=== PATIENT | female | born 1950 | race Caucasian/White ===

== ENCOUNTER 2017-05-04 18:44 | Emergency (ER) | payer MEDICAID, MEDICARE ==
[~2017-05-04] VITALS: Ht 152.4 cm; Wt 80.0 kg
[~2017-05-04 18:44] MED LIST: ATEN-42 PO; BENA5TAB3 PO; LANS15CA14 PO
[2017-05-04] MEDS ORDERED: ONDANSETRON HCL 4MG/2ML VIAL IV STA (19:55)
[2017-05-04] MEDS ORDERED: SODIUM CHLORIDE 0.9% 1,000 ML IV ONE (19:55)
[2017-05-04] MEDS ORDERED: FAMOTIDINE 20MG/2ML VIAL IV STA (19:55)
[2017-05-04] MEDS ORDERED: MORPHINE SULFATE 4 MG/ML CPJ (NOT FOR IM USE) IV STA (19:55)
[2017-05-04 20:21] LABS: BASOPHILS % 1.2 % (0.0-2.0); EOSINOPHILS % 3.4 % (0.0-5.0); HEMATOCRIT. 34.6 % (36.0-48.0); HEMOGLOBIN. 11.7 g/dL (12.0-16.0); LYMPHOCYTES % 37.5 % (20.0-50.0); MEAN CORPUSCULAR HEMOGLOBIN 29.5 pg (28.0-32.0); MEAN PLATELET VOLUME 6.8 fl (7.4-10.4); MONOCYTES % 8.3 % (2.0-8.0); NEUTROPHILS % 49.6 % (40.0-76.0); PLATELET 326 x1000/uL (130-400); RED BLOOD CELL COUNT 3.98 mill/uL (4.2-5.4); RED CELL DISTRIBUTION WIDTH 14.6 % (11.6-14.6)
[2017-05-04 20:23] LABS: CHLORIDE 107 mEq/L (98-107)
[2017-05-04 20:24] LABS: INR 1.1; PROTHROMBIN TIME 10.9 sec
[2017-05-04 20:34] LABS: CARBON DIOXIDE 26 mEq/L (21-32)
[2017-05-04 22:05] VITALS: BP 140/67
[2017-05-04 22:32] LABS: CLARITY URINE CLEAR (CLEAR); COLOR URINE YELLOW (YELLOW); GLUCOSE URINE NEGATIVE (NEGATIVE); KETONES URINE NEGATIVE (NEGATIVE); LEUKOCYTE ESTERASE URINE 1+ (NEGATIVE); NITRITE URINE NEGATIVE (NEGATIVE); OCCULT BLOOD URINE NEGATIVE (NEGATIVE); PH URINE 5.5 (4.5-8.0); PROTEIN URINE NEGATIVE (NEGATIVE); SPECIFIC GRAVITY URINE 1.026 (1.005-1.030)
== END 2017-05-04 23:03 | disposition home or self-care (01) ==
LOC: ER 19:01 → CANBEDREQ 05-05 05:04
DX: K44.9 Diaphragmatic hernia without obstruction or gangrene (principal); K76.0 Fatty (change of) liver, not elsewhere classified; E11.9 Type 2 diabetes mellitus without complications; R60.0 Localized edema; E78.00 Pure hypercholesterolemia, unspecified; I10 Essential (primary) hypertension; D64.9 Anemia, unspecified; J45.909 Unspecified asthma, uncomplicated; F32.9 Major depressive disorder, single episode, unspecified; G47.30 Sleep apnea, unspecified; Z88.6 Allergy status to analgesic agent; Z90.710 Acquired absence of both cervix and uterus
CPT/HCPCS: 36415; 71010; 74176; 80053; 81001; 83605; 83690; 83880; 85025; 85610; 93005; 96361; 96374; 96375; 99285; J2270; J2405; J3490; J7030

== ENCOUNTER 2017-09-21 19:17 | Emergency (ER) | payer MEDICARE, MEDICAID ==
[~2017-09-21] VITALS: Ht 162.6 cm; Wt 81.0 kg
[2017-09-21] MEDS ORDERED: ONDANSETRON HCL 4MG/2ML VIAL IV STA (19:59)
[2017-09-21] MEDS ORDERED: MORPHINE SULFATE 4 MG/ML CPJ (NOT FOR IM USE) IV STA (19:59)
[2017-09-21 21:49] LABS: BASOPHILS % 0.6 % (0.0-2.0); EOSINOPHILS % 2.5 % (0.0-5.0); HEMATOCRIT. 37.7 % (36.0-48.0); HEMOGLOBIN. 12.4 g/dL (12.0-16.0); LYMPHOCYTES % 17.6 % (20.0-50.0); MEAN CORPUSCULAR VOLUME 82.1 fL (81.0-99.0); MEAN PLATELET VOLUME 6.8 fl (7.4-10.4); MONOCYTES % 7.6 % (2.0-8.0); NEUTROPHILS % 71.7 % (40.0-76.0); PLATELET 398 x1000/uL (130-400); RED BLOOD CELL COUNT 4.59 mill/uL (4.2-5.4); RED CELL DISTRIBUTION WIDTH 15.5 % (11.6-14.6)
[2017-09-21 21:55] LABS: CHLORIDE 103 mEq/L (98-107); INR 1.1; PROTHROMBIN TIME 11.4 sec (9.4-11.6)
[2017-09-21 22:02] LABS: CARBON DIOXIDE 26 mEq/L (21-32)
[2017-09-21 22:58] VITALS: BP 130/77
== END 2017-09-21 23:01 | disposition home or self-care (01) ==
LOC: ER 19:41
DX: K59.00 Constipation, unspecified (principal); K21.9 Gastro-esophageal reflux disease without esophagitis; M19.90 Unspecified osteoarthritis, unspecified site; I10 Essential (primary) hypertension; E11.9 Type 2 diabetes mellitus without complications; Z90.710 Acquired absence of both cervix and uterus; Z98.890 Other specified postprocedural states
CPT/HCPCS: 36415; 71010; 80053; 83690; 85025; 85610; 93005; 96374; 96375; 99285; J2270; J2405

== ENCOUNTER 2017-10-10 08:17 | Emergency (ER) | payer OTHER, MEDICAID ==
[~2017-10-10] VITALS: Ht 152.4 cm; Wt 69.0 kg
[2017-10-10] MEDS ORDERED: ALBUTEROL (0.5%) 2.5MG/0.5ML NEB HHN ONE (10:30)
[2017-10-10] MEDS ORDERED: GUAIFENESIN/CODEINE 100-10MG/5ML UDC PO ONE (10:30)
[2017-10-10 13:03] VITALS: BP 140/85
== END 2017-10-10 13:10 | disposition home or self-care (01) ==
LOC: ER 08:17
DX: J20.9 Acute bronchitis, unspecified (principal); J45.909 Unspecified asthma, uncomplicated; E11.9 Type 2 diabetes mellitus without complications; I10 Essential (primary) hypertension; R10.30 Lower abdominal pain, unspecified; Z90.710 Acquired absence of both cervix and uterus; Z98.890 Other specified postprocedural states; Z88.8 Allergy status to other drugs, medicaments and biological substances
CPT/HCPCS: 71045; 94640; 99283; J7611

== ENCOUNTER 2018-07-31 14:38 | Emergency (ER) | payer OTHER, MEDICAID ==
[~2018-07-31] VITALS: Ht 149.9 cm; Wt 75.0 kg
[~2018-07-31 14:38] MED LIST changes: -BENA5TAB3 PO; +BENA5TAB6 PO
[2018-07-31] MEDS ORDERED: GABAPENTIN 300MG CAPSULE PO ONE (20:30)
[2018-07-31] MEDS ORDERED: ACETAMINOPHEN 325MG TABLET PO ONE (20:30)
[2018-07-31 21:53] LABS: BASOPHILS % 1.4 % (0.0-2.0); EOSINOPHILS % 3.6 % (0.0-5.0); HEMATOCRIT. 38.2 % (36.0-48.0); HEMOGLOBIN. 12.6 g/dL (12.0-16.0); LYMPHOCYTES % 33.2 % (20.0-50.0); MEAN CORPUSCULAR HEMOGLOBIN 26.5 pg (28.0-32.0); MEAN CORPUSCULAR VOLUME 80.5 fL (81.0-99.0); MEAN PLATELET VOLUME 7.2 fl (7.4-10.4); MONOCYTES % 5.9 % (2.0-8.0); NEUTROPHILS % 55.9 % (40.0-76.0); PLATELET 360 x1000/uL (130-400); RED BLOOD CELL COUNT 4.75 mill/uL (4.2-5.4); RED CELL DISTRIBUTION WIDTH 17.8 % (11.6-14.6)
[2018-07-31 21:56] LABS: CHLORIDE 104 mEq/L (98-107)
[2018-07-31 23:07] VITALS: BP 150/70
== END 2018-07-31 23:06 | disposition home or self-care (01) ==
LOC: ER 14:38
DX: M54.12 Radiculopathy, cervical region (principal); J45.909 Unspecified asthma, uncomplicated; I10 Essential (primary) hypertension; E11.9 Type 2 diabetes mellitus without complications; M54.30 Sciatica, unspecified side; M19.90 Unspecified osteoarthritis, unspecified site; Z79.899 Other long term (current) drug therapy
CPT/HCPCS: 36415; 70490; 85651; 86140; 99285

== ENCOUNTER 2020-01-18 14:18 | Emergency (ER) | payer MEDICARE, MEDICAID ==
[~2020-01-18] VITALS: Ht 162.6 cm; Wt 100.0 kg
[2020-01-18] MEDS ORDERED: ACETAMINOPHEN 325MG TABLET PO ONE (15:30)
[2020-01-18] MEDS ORDERED: TRAMADOL 50MG TABLET PO ONE (15:30)
[2020-01-18 15:31] VITALS: BP 110/49
== END 2020-01-18 17:05 | disposition home or self-care (01) ==
LOC: ER 14:37
DX: G89.18 Other acute postprocedural pain (principal); M54.5 Low back pain; E11.9 Type 2 diabetes mellitus without complications; J45.909 Unspecified asthma, uncomplicated; I10 Essential (primary) hypertension; Z90.710 Acquired absence of both cervix and uterus; Z98.890 Other specified postprocedural states; Z88.6 Allergy status to analgesic agent; Z79.899 Other long term (current) drug therapy
CPT/HCPCS: 99283

== ENCOUNTER 2020-07-19 11:17 | Emergency (ER) | payer MEDICARE, MEDICAID ==
[~2020-07-19] VITALS: Ht 162.6 cm; Wt 82.0 kg
[2020-07-19] MEDS ORDERED: HYDRALAZINE HCL 100MG TABLET PO ONE (11:45)
[2020-07-19] MEDS ORDERED: SODIUM CHLORIDE 0.9% 1,000 ML IV ONE (11:45)
[2020-07-19] MEDS ORDERED: ACETAMINOPHEN 325MG TABLET PO ONE (11:45)
[2020-07-19 12:11] LABS: BASOPHILS % 1.2 % (0.0-2.0); EOSINOPHILS % 3.1 % (0.0-5.0); HEMATOCRIT. 36.3 % (36.0-48.0); HEMOGLOBIN. 12.1 g/dL (12.0-16.0); LYMPHOCYTES % 20.3 % (20.0-50.0); MEAN CORPUSCULAR HEMOGLOBIN 26.7 pg (28.0-32.0); MEAN CORPUSCULAR VOLUME 80.1 fL (81.0-99.0); MEAN PLATELET VOLUME 7.5 fl (7.4-10.4); MONOCYTES % 6.7 % (2.0-8.0); NEUTROPHILS % 68.7 % (40.0-76.0); PLATELET 315 x1000/uL (130-400); RED BLOOD CELL COUNT 4.54 mill/uL (4.2-5.4); RED CELL DISTRIBUTION WIDTH 17.3 % (11.6-14.6)
[2020-07-19 12:19] LABS: CHLORIDE 105 mEq/L (98-107)
[2020-07-19 12:21] LABS: PROTHROMBIN TIME 10.6 sec (9.6-11.0)
[2020-07-19 13:10] VITALS: BP 116/64
[2020-07-21] MEDS ORDERED: GLIP5TAB12 MT (13:03)
== END 2020-07-19 13:36 | disposition home or self-care (01) ==
LOC: ER 11:17
DX: I10 Essential (primary) hypertension (principal); M79.10 Myalgia, unspecified site; E11.65 Type 2 diabetes mellitus with hyperglycemia; Z98.890 Other specified postprocedural states; Z90.710 Acquired absence of both cervix and uterus; Z88.8 Allergy status to other drugs, medicaments and biological substances
CPT/HCPCS: 36415; 71045; 80053; 82962; 85025; 85610; 93005; 96360; 99285; J7030

== ENCOUNTER 2020-07-30 11:57 | Emergency (ER) | payer MEDICARE, MEDICAID ==
[~2020-07-30] VITALS: Ht 149.9 cm; Wt 77.0 kg
[~2020-07-30 11:57] MED LIST changes: +GLIP5TAB12 MT
[2020-07-30] MEDS ORDERED: IBUPROFEN 600MG TABLET PO ONE (13:15)
[2020-07-30] MEDS ORDERED: HYDROCODONE/ACETAMINOPHEN 10/325MG TABLET PO ONE (13:15)
[2020-07-30 16:30] VITALS: BP 116/58
== END 2020-07-30 17:35 | disposition home or self-care (01) ==
LOC: ER 12:10
DX: M54.42 Lumbago with sciatica, left side (principal); E11.9 Type 2 diabetes mellitus without complications; I10 Essential (primary) hypertension; Z90.710 Acquired absence of both cervix and uterus
CPT/HCPCS: 72131; 99284

== ENCOUNTER 2020-08-31 12:15 | Emergency (ER) | payer MEDICARE, MEDICAID ==
[~2020-08-31] VITALS: Ht 149.9 cm; Wt 73.0 kg
[2020-08-31 13:11] LABS: EOSINOPHILS % 5.9 % (0.0-5.0); HEMATOCRIT. 34.1 % (36.0-48.0); HEMOGLOBIN. 11.2 g/dL (12.0-16.0); LYMPHOCYTES % 22.2 % (20.0-50.0); MEAN CORPUSCULAR HEMOGLOBIN 26.5 pg (28.0-32.0); MEAN CORPUSCULAR VOLUME 80.8 fL (81.0-99.0); MEAN PLATELET VOLUME 6.7 fl (7.4-10.4); MONOCYTES % 7.4 % (2.0-8.0); NEUTROPHILS % 63.5 % (40.0-76.0); PLATELET 323 x1000/uL (130-400); RED BLOOD CELL COUNT 4.22 mill/uL (4.2-5.4); RED CELL DISTRIBUTION WIDTH 16.1 % (11.6-14.6)
[2020-08-31 13:25] LABS: CHLORIDE 108 mEq/L (98-107)
[2020-08-31] MEDS ORDERED: IPRATROPIUM/ALBUTEROL 0.5-3(2.5)MG/3ML NEB HHN ONE (13:30)
[2020-08-31] MEDS ORDERED: POTASSIUM CHLORIDE 20MEQ TABLET SR PO ONE (14:45)
[2020-08-31 15:00] VITALS: BP 128/68
== END 2020-08-31 15:52 | disposition home or self-care (01) ==
LOC: ER 12:43
DX: J44.1 Chronic obstructive pulmonary disease with (acute) exacerbation (principal); E87.6 Hypokalemia; E11.65 Type 2 diabetes mellitus with hyperglycemia; I10 Essential (primary) hypertension; E78.00 Pure hypercholesterolemia, unspecified; Z03.818 Encounter for observation for suspected exposure to other biological agents ruled out; Z98.1 Arthrodesis status; Z90.710 Acquired absence of both cervix and uterus; Z88.8 Allergy status to other drugs, medicaments and biological substances
CPT/HCPCS: 36415; 71045; 80053; 84484; 85025; 87635; 93005; 99285; C9803

== ENCOUNTER 2020-12-10 11:46 | Emergency (ER) | payer MEDICARE, MEDICAID ==
[~2020-12-10] VITALS: Ht 149.9 cm; Wt 74.8 kg
[2020-12-10] MEDS ORDERED: MORPHINE SULFATE 4 MG/ML CPJ (NOT FOR IM USE) IV STA (12:11)
[2020-12-10] MEDS ORDERED: ONDANSETRON HCL 4MG/2ML INJ IV STA (12:11)
[2020-12-10] MEDS ORDERED: SODIUM CHLORIDE 0.9% 1,000 ML IV ONE (12:15)
[2020-12-10] MEDS ORDERED: AMLODIPINE 5MG TABLET PO ONE (12:15)
[2020-12-10 12:35] LABS: BASOPHILS % 1.2 % (0.0-2.0); EOSINOPHILS % 4.2 % (0.0-5.0); HEMATOCRIT. 36.6 % (36.0-48.0); LYMPHOCYTES % 20.9 % (20.0-50.0); MEAN CORPUSCULAR VOLUME 79.2 fL (81.0-99.0); MONOCYTES % 5.6 % (2.0-8.0); NEUTROPHILS % 68.1 % (40.0-76.0); PLATELET 366 x1000/uL (130-400); RED BLOOD CELL COUNT 4.62 mill/uL (4.2-5.4); RED CELL DISTRIBUTION WIDTH 16.1 % (11.6-14.6)
[2020-12-10 12:43] LABS: CHLORIDE 106 mEq/L (98-107)
[2020-12-10 12:46] LABS: INR 1.1; PROTHROMBIN TIME 11.8 sec (9.6-11.0)
[2020-12-10 13:11] VITALS: BP 163/73
[2020-12-10] MEDS ORDERED: T3 PO (14:31)
[2020-12-10] MEDS ORDERED: CEPH500C2 MT (14:32)
[2020-12-10 15:30] LABS: CLARITY URINE CLEAR (CLEAR); COLOR URINE YELLOW (YELLOW); KETONES URINE NEGATIVE (NEGATIVE); LEUKOCYTE ESTERASE URINE NEGATIVE (NEGATIVE); NITRITE URINE NEGATIVE (NEGATIVE); OCCULT BLOOD URINE TRACE (NEGATIVE); PH URINE 5.5 (4.5-8.0); PROTEIN URINE TRACE (NEGATIVE); SPECIFIC GRAVITY URINE 1.025 (1.005-1.030); UROBILINOGEN URINE 0.2 E.U./dL (0.2-1.0)
== END 2020-12-10 15:55 | disposition home or self-care (01) ==
LOC: ER 12:21
DX: R10.9 Unspecified abdominal pain (principal); E11.9 Type 2 diabetes mellitus without complications; I10 Essential (primary) hypertension; Z90.710 Acquired absence of both cervix and uterus; Z98.890 Other specified postprocedural states; Z79.899 Other long term (current) drug therapy; Z88.5 Allergy status to narcotic agent
CPT/HCPCS: 36415; 74176; 80053; 81003; 83690; 85025; 85610; 93005; 96361; 96374; 96375; 99285; J2270; J2405; J7030

== ENCOUNTER 2021-01-05 13:47 | Emergency (ER) | payer MEDICARE, MEDICAID ==
[~2021-01-05] VITALS: Ht 149.9 cm; Wt 74.0 kg
[~2021-01-05 13:47] MED LIST changes: +CEPH500C2 MT; +T3 PO
[2021-01-05] MEDS ORDERED: HYDROCODONE/ACETAMINOPHEN 5/325MG TABLET PO ONE (14:15)
[2021-01-05] MEDS ORDERED: HYDR-4001 MT (16:18)
[2021-01-05] MEDS ORDERED: T3 PO ×2 (16:25)
[2021-01-05 17:00] VITALS: BP 168/75
== END 2021-01-05 18:02 | disposition home or self-care (01) ==
LOC: ER 13:57
DX: S92.351A Displaced fracture of fifth metatarsal bone, right foot, initial encounter for closed fracture (principal); E11.9 Type 2 diabetes mellitus without complications; I10 Essential (primary) hypertension; W50.2XXA Accidental twist by another person, initial encounter; Y93.89 Activity, other specified; Y92.89 Other specified places as the place of occurrence of the external cause; Y99.8 Other external cause status; Z98.890 Other specified postprocedural states; Z79.899 Other long term (current) drug therapy; Z88.5 Allergy status to narcotic agent
CPT/HCPCS: 29505; 73590; 73610; 73630; 99284

== ENCOUNTER 2021-05-06 16:25 | Inpatient (IN) | payer MEDICARE, MEDICAID ==
[~2021-05-06] VITALS: Ht 157.5 cm; Wt 78.5 kg
[~2021-05-06 16:25] MED LIST changes: -ATEN-42 PO; +ATEN50TA PO; -BENA5TAB6 PO; -CEPH500C2 MT; +GLIM4TAB36 PO; -GLIP5TAB12 MT; -LANS15CA14 PO; +METF-416 PO; +RIME75TA SL; -T3 PO; +VALS160T28 PO
[2021-05-06] MEDS ORDERED: MECLIZINE 25MG TABLET PO ONE (19:00)
[2021-05-06] MEDS ORDERED: SODIUM CHLORIDE 0.9% 1,000 ML IV ONE ×2 (19:00→19:15)
[2021-05-06 21:29] LABS: BASOPHILS % 0.9 % (0.0-2.0); EOSINOPHILS % 3.5 % (0.0-5.0); HEMATOCRIT. 33.1 % (36.0-48.0); HEMOGLOBIN. 10.8 g/dL (12.0-16.0); LYMPHOCYTES % 34.1 % (20.0-50.0); MEAN CORPUSCULAR VOLUME 76.3 fL (81.0-99.0); MEAN PLATELET VOLUME 6.7 fl (7.4-10.4); NEUTROPHILS % 54.5 % (40.0-76.0); PLATELET 417 x1000/uL (130-400); RED BLOOD CELL COUNT 4.34 mill/uL (4.2-5.4); RED CELL DISTRIBUTION WIDTH 16.4 % (11.6-14.6)
[2021-05-06 21:35] LABS: CHLORIDE 111 mEq/L (98-107)
[2021-05-06 21:43] LABS: BETA HYDROXYBUTYRATE 0.1 mMol/L (0.0-0.3)
[2021-05-06] MEDS ORDERED: AMPICILLIN SOD/SULBACTAM NA 3 G in SODIUM CHLORIDE 0.9% 100 ML IV SCH (22:45)
[2021-05-06 22:46] LABS: CLARITY URINE CLEAR (CLEAR); COLOR URINE YELLOW (YELLOW); KETONES URINE NEGATIVE (NEGATIVE); LEUKOCYTE ESTERASE URINE NEGATIVE (NEGATIVE); NITRITE URINE NEGATIVE (NEGATIVE); OCCULT BLOOD URINE NEGATIVE (NEGATIVE); PROTEIN URINE NEGATIVE (NEGATIVE); SPECIFIC GRAVITY URINE 1.008 (1.005-1.030); UROBILINOGEN URINE 0.2 E.U./dL (0.2-1.0)
[2021-05-07] MEDS ORDERED: MORPHINE SULFATE 4 MG/ML CPJ (NOT FOR IM USE) IV ONE
[2021-05-07] MEDS ORDERED: ONDANSETRON HCL 4MG/2ML INJ IV PRN (00:30)
[2021-05-07] MEDS ORDERED: DIPHENHYDRAMINE 50MG/ML VIAL IV PRN (00:30)
[2021-05-07] MEDS ORDERED: CLONIDINE 0.1MG TABLET PO PRN (00:30)
[2021-05-07] MEDS ORDERED: NA PHOS,M-B/NA PHOS,DI-BA ENEMA 118ML PR PRN (00:30)
[2021-05-07] MEDS ORDERED: LORAZEPAM 2MG/ML CPJ IV PRN (00:30)
[2021-05-07] MEDS ORDERED: IPRATROPIUM/ALBUTEROL 0.5-3(2.5)MG/3ML NEB NEB PRN (00:30)
[2021-05-07] MEDS ORDERED: DOCUSATE SODIUM 100MG CAPSULE PO PRN (00:30)
[2021-05-07] MEDS ORDERED: NALOXONE HCL 0.4MG/ML VIAL IV PRN (00:30)
[2021-05-07] MEDS ORDERED: ACETAMINOPHEN 325MG TABLET PO PRN (00:30)
[2021-05-07] MEDS ORDERED: MAGNESIUM/ALUMINUM HYDROXIDE/SIMETHICONE 30ML UDC PO PRN (00:30)
[2021-05-07] MEDS ORDERED: GUAIFENESIN 200MG/10ML SUGAR FREE UDC PO PRN (00:30)
[2021-05-07] MEDS: SODIUM CHLORIDE 0.45% 1,000 ML IV SCH ×2 (02:34→08:25)
[2021-05-07] MEDS ORDERED: DEXTROSE 50% WATER 50ML SYRINGE IV PRN (05:15)
[2021-05-07] MEDS: MORPHINE SULFATE 2 MG/ML CPJ (NOT FOR IM USE) IV PRN ×2 (05:44→16:31)
[2021-05-07] MEDS: BLOOD SUGAR DIAGNOSTIC STRIP TEST SCH ×4 (07:20→21:01)
[2021-05-07 08:00] VITALS: BP 154/88
[2021-05-07] MEDS: ASPIRIN 81MG EC TABLET PO SCH (08:33)
[2021-05-07] MEDS: ENOXAPARIN 40MG/0.4ML SYR SUBCUT SCH (08:34)
[2021-05-07] MEDS: INSULIN LISPRO 100 UNITS/ML SUBCUT SCH ×4 (08:39→21:01)
[2021-05-07 10:07] LABS: CHLORIDE 107 mEq/L (98-107)
[2021-05-07] MEDS: HYDRALAZINE HCL 50MG TABLET PO SCH ×2 (10:49→20:43)
[2021-05-07 16:08] LABS: CREATINE KINASE 43 IU/L (26-192)
[2021-05-07 16:09] LABS: CREATINE KINASE MB FRACTION < 1.0 ng/mL (0.5-3.6)
[2021-05-07 20:00] VITALS: BP 152/83
[2021-05-07] MEDS ORDERED: POTASSIUM CHLORIDE 20MEQ TABLET SR PO ONE (20:00)
[2021-05-07] MEDS ORDERED: LEVOFLOXACIN 500MG PREMIX 100 ML IV NR (21:00)
[2021-05-08] VITALS: BP 139/74
[2021-05-08] MEDS: MORPHINE SULFATE 2 MG/ML CPJ (NOT FOR IM USE) IV PRN ×3 (00:13→20:06)
[2021-05-08 00:30] LABS: CREATINE KINASE 56 IU/L (26-192)
[2021-05-08 00:31] LABS: CREATINE KINASE MB FRACTION < 1.0 ng/mL (0.5-3.6)
[2021-05-08 04:00] VITALS: BP 128/66
[2021-05-08] MEDS: BLOOD SUGAR DIAGNOSTIC STRIP TEST SCH ×4 (06:30→20:12)
[2021-05-08 06:51] LABS: EOSINOPHILS % 3.7 % (0.0-5.0); HEMOGLOBIN. 11.5 g/dL (12.0-16.0); LYMPHOCYTES % 30.9 % (20.0-50.0); MEAN CORPUSCULAR HEMOGLOBIN 24.8 pg (28.0-32.0); MEAN PLATELET VOLUME 6.6 fl (7.4-10.4); NEUTROPHILS % 57.4 % (40.0-76.0); PLATELET 425 x1000/uL (130-400); RED BLOOD CELL COUNT 4.61 mill/uL (4.2-5.4); RED CELL DISTRIBUTION WIDTH 17.4 % (11.6-14.6)
[2021-05-08 07:15] LABS: CHLORIDE 104 mEq/L (98-107)
[2021-05-08 07:27] LABS: LDL CHOLESTEROL 87 mg/dL (5-100)
[2021-05-08 07:28] LABS: CREATINE KINASE 53 IU/L (26-192); CREATINE KINASE MB FRACTION < 1.0 ng/mL (0.5-3.6)
[2021-05-08 07:30] LABS: T4 FREE 1.22 ng/dL (0.76-1.46)
[2021-05-08 07:31] LABS: HDL CHOLESTEROL 41 mg/dL (40-59)
[2021-05-08 08:00] VITALS: BP 140/75
[2021-05-08] MEDS: ASPIRIN 81MG EC TABLET PO SCH (09:06)
[2021-05-08] MEDS: ENOXAPARIN 40MG/0.4ML SYR SUBCUT SCH (09:07)
[2021-05-08] MEDS: HYDRALAZINE HCL 50MG TABLET PO SCH ×2 (09:07→20:18)
[2021-05-08] MEDS: INSULIN LISPRO 100 UNITS/ML SUBCUT SCH ×4 (09:12→20:18)
[2021-05-08] MEDS: SODIUM CHLORIDE 0.45% 1,000 ML IV SCH (10:15)
[2021-05-08] MEDS ORDERED: ONDANSETRON HCL 4MG/2ML INJ IV PRN (11:45)
[2021-05-08 12:00] VITALS: BP 121/70
[2021-05-08 16:00] VITALS: BP 140/72
[2021-05-08 20:00] VITALS: BP 133/63
[2021-05-09] VITALS: BP 130/69
[2021-05-09] MEDS: SODIUM CHLORIDE 0.45% 1,000 ML IV SCH (02:48)
[2021-05-09 04:00] VITALS: BP 131/74
[2021-05-09] MEDS: BLOOD SUGAR DIAGNOSTIC STRIP TEST SCH (06:51)
[2021-05-09 08:00] VITALS: BP 132/75
[2021-05-09] MEDS: ASPIRIN 81MG EC TABLET PO SCH (09:07)
[2021-05-09] MEDS: HYDRALAZINE HCL 50MG TABLET PO SCH (09:07)
[2021-05-09] MEDS: ENOXAPARIN 40MG/0.4ML SYR SUBCUT SCH (09:08)
[2021-05-09] MEDS: INSULIN LISPRO 100 UNITS/ML SUBCUT SCH (09:21)
[2021-05-09] MEDS ORDERED: OMEPRAZOLE 20MG CAPSULE EXTENDED RELEASE PO NR (10:00)
[2021-05-09 10:26] VITALS: BP 132/75
== END 2021-05-09 11:50 | disposition home or self-care (01) | DRG 73 ==
LOC: ER 16:25 → 6EST 22:55 → ENRESERV 23:58 → CANRESERV 23:58 → ENRESERV 05-07 01:05 → EDBEDREQ 05-07 02:12
PROVIDERS: ADMIT Internal Medicine; ATTEND Internal Medicine
DX: G90.9 Disorder of the autonomic nervous system, unspecified (principal); G93.41 Metabolic encephalopathy; G45.9 Transient cerebral ischemic attack, unspecified; K57.32 Diverticulitis of large intestine without perforation or abscess without bleeding; I67.1 Cerebral aneurysm, nonruptured; H81.10 Benign paroxysmal vertigo, unspecified ear; E11.65 Type 2 diabetes mellitus with hyperglycemia; E66.9 Obesity, unspecified; I11.0 Hypertensive heart disease with heart failure; D64.9 Anemia, unspecified; E03.8 Other specified hypothyroidism; G43.909 Migraine, unspecified, not intractable, without status migrainosus; I25.10 Atherosclerotic heart disease of native coronary artery without angina pectoris; K44.9 Diaphragmatic hernia without obstruction or gangrene; K76.0 Fatty (change of) liver, not elsewhere classified; Z79.84 Long term (current) use of oral hypoglycemic drugs; Z79.899 Other long term (current) drug therapy; Z91.81 History of falling; Z88.5 Allergy status to narcotic agent; Z88.8 Allergy status to other drugs, medicaments and biological substances; Z79.1 Long term (current) use of non-steroidal anti-inflammatories (NSAID); Z68.31 Body mass index [BMI] 31.0-31.9, adult; I50.9 Heart failure, unspecified
CPT/HCPCS: 36415; 71045; 74176; 80048; 80053; 80061; 81003; 82010; 82550; 82553; 82962; 83036; 83880; 84439; 84443; 84484; 85025; 85379; 93005; 93306; 97162; 99285; J0295; J1200; J1650; J1815; J1956; J2270; J2405; J7030; J7050; J8597

== ENCOUNTER 2021-09-01 10:56 | Inpatient (IN) | payer MEDICARE, MEDICAID ==
[~2021-09-01] VITALS: Ht 149.9 cm; Wt 77.1 kg
[2021-09-01] MEDS ORDERED: LACTATED RINGERS 1,000 ML IV SCH (12:15)
[2021-09-01] MEDS ORDERED: MORPHINE SULFATE 4 MG/ML CPJ (NOT FOR IM USE) IV ONE (12:15)
[2021-09-01 12:35] LABS: BASOPHILS % 0.4 % (0.0-2.0); EOSINOPHILS % 0.9 % (0.0-5.0); HEMATOCRIT. 35.8 % (36.0-48.0); HEMOGLOBIN. 11.4 g/dL (12.0-16.0); LYMPHOCYTES % 18.6 % (20.0-50.0); MEAN CORPUSCULAR HEMOGLOBIN 24.4 pg (28.0-32.0); MEAN CORPUSCULAR VOLUME 76.7 fL (81.0-99.0); NEUTROPHILS % 71.1 % (40.0-76.0); PLATELET 432 x1000/uL (130-400); RED BLOOD CELL COUNT 4.67 mill/uL (4.2-5.4); RED CELL DISTRIBUTION WIDTH 19.3 % (11.6-14.6)
[2021-09-01 12:43] LABS: CHLORIDE 101 mEq/L (98-107)
[2021-09-01 13:13] LABS: CLARITY URINE CLEAR (CLEAR); COLOR URINE YELLOW (YELLOW); KETONES URINE NEGATIVE (NEGATIVE); LEUKOCYTE ESTERASE URINE NEGATIVE (NEGATIVE); NITRITE URINE NEGATIVE (NEGATIVE); OCCULT BLOOD URINE NEGATIVE (NEGATIVE); PH URINE 7.5 (4.5-8.0); PROTEIN URINE TRACE (NEGATIVE); SPECIFIC GRAVITY URINE 1.013 (1.005-1.030); UROBILINOGEN URINE 0.2 E.U./dL (0.2-1.0)
[2021-09-01] MEDS ORDERED: IOHEXOL-300 100 ML BOTTLE ONE (14:38)
[2021-09-01] MEDS ORDERED: CEFTRIAXONE 1 G PREMIX 50 ML IV ONE (15:45)
[2021-09-01] MEDS ORDERED: METRONIDAZOLE 500 MG PREMIX 100 ML IV ONE (15:45)
[2021-09-01] MEDS ORDERED: KETOROLAC 30MG/ML VIAL IV ONE (17:00)
[2021-09-01 20:00] VITALS: BP 130/66
[2021-09-01] MEDS ORDERED: NALOXONE HCL 0.4MG/ML VIAL IV PRN (20:30)
[2021-09-01] MEDS: MORPHINE SULFATE 2 MG/ML CPJ (NOT FOR IM USE) IV PRN (20:31)
[2021-09-01] MEDS ORDERED: CLONIDINE 0.1MG TABLET PO PRN (21:00)
[2021-09-01] MEDS ORDERED: MAGNESIUM/ALUMINUM HYDROXIDE/SIMETHICONE 30ML UDC PO PRN (21:00)
[2021-09-01] MEDS ORDERED: ONDANSETRON HCL 4MG/2ML INJ IV PRN (21:15)
[2021-09-01] MEDS ORDERED: PIPERACILLIN/TAZ 3.375G PREMIX 50 ML IV NR (21:15)
[2021-09-01 21:30] VITALS: BP 130/66
[2021-09-01] MEDS ORDERED: METR-167 PO (22:12)
[2021-09-01] MEDS ORDERED: AMOX1TAB16 PO (22:12)
[2021-09-01] MEDS ORDERED: CEPH500C2 PO (22:12)
[2021-09-01] MEDS ORDERED: VALS1TAB75 PO (22:45)
[2021-09-01] MEDS ORDERED: SEMA7TAB PO (22:45)
[2021-09-01] MEDS ORDERED: LEVO750T46 PO (22:45)
[2021-09-01] MEDS ORDERED: ICOS1CAP PO (22:45)
[2021-09-01] MEDS ORDERED: METO-411 PO (22:45)
[2021-09-01] MEDS ORDERED: MECL-159 PO (22:45)
[2021-09-01] MEDS ORDERED: CIPR500T5 PO (22:45)
[2021-09-01] MEDS ORDERED: AMLO5TAB88 PO (22:45)
[2021-09-01] MEDS: SODIUM CHLORIDE 0.45% 1,000 ML IV SCH (23:27)
[2021-09-02] VITALS: BP 129/75
[2021-09-02] MEDS ORDERED: DEXTROSE 50% WATER 50ML SYRINGE IV PRN
[2021-09-02] MEDS ORDERED: POTASSIUM CHLORIDE 20MEQ TABLET SR PO NR (00:30)
[2021-09-02] MEDS: PIPERACILLIN/TAZOBACTAM 3.375 G in DEXTROSE 5% WATER 50 ML IV SCH ×2 (01:09→15:13)
[2021-09-02 04:00] VITALS: BP 142/51
[2021-09-02 06:25] LABS: BASOPHILS % 0.8 % (0.0-2.0); EOSINOPHILS % 2.5 % (0.0-5.0); HEMATOCRIT. 29.8 % (36.0-48.0); HEMOGLOBIN. 9.7 g/dL (12.0-16.0); LYMPHOCYTES % 17.6 % (20.0-50.0); MEAN CORPUSCULAR HEMOGLOBIN 24.7 pg (28.0-32.0); MEAN CORPUSCULAR VOLUME 75.8 fL (81.0-99.0); MEAN PLATELET VOLUME 6.9 fl (7.4-10.4); MONOCYTES % 7.6 % (2.0-8.0); NEUTROPHILS % 71.5 % (40.0-76.0); PLATELET 340 x1000/uL (130-400); RED BLOOD CELL COUNT 3.93 mill/uL (4.2-5.4); RED CELL DISTRIBUTION WIDTH 19.3 % (11.6-14.6)
[2021-09-02 06:31] LABS: CHLORIDE 103 mEq/L (98-107)
[2021-09-02 06:55] LABS: LDL CHOLESTEROL 58 mg/dL (5-100)
[2021-09-02 06:57] LABS: HDL CHOLESTEROL 63 mg/dL (40-59)
[2021-09-02] MEDS: BLOOD SUGAR DIAGNOSTIC STRIP TEST SCH ×4 (07:50→21:00)
[2021-09-02 08:00] VITALS: BP 156/88
[2021-09-02] MEDS: MORPHINE SULFATE 2 MG/ML CPJ (NOT FOR IM USE) IV PRN ×2 (09:20→20:31)
[2021-09-02] MEDS: INSULIN LISPRO 100 UNITS/ML SUBCUT SCH ×4 (09:28→21:00)
[2021-09-02] MEDS: SODIUM CHLORIDE 0.45% 1,000 ML IV SCH ×2 (10:20→23:40)
[2021-09-02] MEDS ORDERED: PANTOPRAZOLE SODIUM 40 MG/VIAL IV SCH (11:15)
[2021-09-02] MEDS ORDERED: LACTULOSE 20G/30ML UDC PO SCH (11:15)
[2021-09-02] MEDS ORDERED: KETOROLAC 30MG/ML VIAL IV SCH (11:15)
[2021-09-02 12:00] VITALS: BP 163/64
[2021-09-02 16:00] VITALS: BP 102/72
[2021-09-02] MEDS: DOCUSATE SODIUM 100MG CAPSULE PO SCH (17:00)
[2021-09-02 20:00] VITALS: BP 136/67
[2021-09-03] VITALS: BP 141/67
[2021-09-03] MEDS: PIPERACILLIN/TAZOBACTAM 3.375 G in DEXTROSE 5% WATER 50 ML IV SCH ×4 (03:51→21:05)
[2021-09-03] MEDS: MORPHINE SULFATE 2 MG/ML CPJ (NOT FOR IM USE) IV PRN ×4 (04:25→21:09)
[2021-09-03] MEDS: BLOOD SUGAR DIAGNOSTIC STRIP TEST SCH ×4 (07:20→20:49)
[2021-09-03] MEDS: INSULIN LISPRO 100 UNITS/ML SUBCUT SCH ×4 (07:50→21:00)
[2021-09-03 08:00] VITALS: BP 169/55
[2021-09-03] MEDS: DOCUSATE SODIUM 100MG CAPSULE PO SCH (09:00)
[2021-09-03 12:00] VITALS: BP 174/74
[2021-09-03] MEDS: SODIUM CHLORIDE 0.45% 1,000 ML IV SCH (13:00)
[2021-09-03 16:00] VITALS: BP 160/73
[2021-09-03 17:00] LABS: BASOPHILS % 1.3 % (0.0-2.0); EOSINOPHILS % 4.4 % (0.0-5.0); HEMATOCRIT. 32.5 % (36.0-48.0); HEMOGLOBIN. 10.6 g/dL (12.0-16.0); LYMPHOCYTES % 18.4 % (20.0-50.0); MEAN CORPUSCULAR HEMOGLOBIN 25.1 pg (28.0-32.0); MONOCYTES % 6.4 % (2.0-8.0); NEUTROPHILS % 69.5 % (40.0-76.0); PLATELET 352 x1000/uL (130-400); RED BLOOD CELL COUNT 4.22 mill/uL (4.2-5.4); RED CELL DISTRIBUTION WIDTH 18.8 % (11.6-14.6)
[2021-09-03 17:18] LABS: CHLORIDE 103 mEq/L (98-107)
[2021-09-03 20:00] VITALS: BP 147/85
[2021-09-04] VITALS: BP 141/75
[2021-09-04] MEDS: SODIUM CHLORIDE 0.45% 1,000 ML IV SCH ×2 (02:39→15:00)
[2021-09-04 04:00] VITALS: BP 153/72
[2021-09-04] MEDS: PIPERACILLIN/TAZOBACTAM 3.375 G in DEXTROSE 5% WATER 50 ML IV SCH ×2 (06:01→15:00)
[2021-09-04] MEDS: MORPHINE SULFATE 2 MG/ML CPJ (NOT FOR IM USE) IV PRN (06:09)
[2021-09-04] MEDS: BLOOD SUGAR DIAGNOSTIC STRIP TEST SCH ×2 (06:27→11:50)
[2021-09-04] MEDS: INSULIN LISPRO 100 UNITS/ML SUBCUT SCH ×2 (07:50→11:51)
[2021-09-04 08:00] VITALS: BP 147/66
[2021-09-04] MEDS ORDERED: ACETAMINOPHEN 650MG/20.3ML UDC PO PRN (09:30)
[2021-09-04] MEDS ORDERED: METR-167 PO (11:30)
[2021-09-04] MEDS ORDERED: LEVO500T89 MT (11:30)
[2021-09-04 11:42] VITALS: BP 147/66
[2021-09-04 12:00] VITALS: BP 135/62
[2021-09-04 16:00] VITALS: BP 162/76
== END 2021-09-04 16:30 | disposition home or self-care (01) | DRG 392 ==
LOC: ER 10:56 → 6EST 17:13 → EDBEDREQSVC 17:15 → EDBEDREQ 17:15 → ENRESERV 20:38
PROVIDERS: ADMIT Family Medicine; ATTEND Family Medicine
DX: K57.32 Diverticulitis of large intestine without perforation or abscess without bleeding (principal); E44.0 Moderate protein-calorie malnutrition; E11.9 Type 2 diabetes mellitus without complications; E66.9 Obesity, unspecified; E86.0 Dehydration; E87.5 Hyperkalemia; I10 Essential (primary) hypertension; Z90.710 Acquired absence of both cervix and uterus; Z68.34 Body mass index [BMI] 34.0-34.9, adult; Z88.6 Allergy status to analgesic agent
CPT/HCPCS: 36415; 74177; 80053; 80061; 81003; 82962; 83036; 85025; 93005; 99285; C1893; C9113; J0696; J1815; J1885; J2270; J2543; J3490; J7060; Q9967

== ENCOUNTER 2022-02-06 15:42 | Emergency (ER) | payer MEDICARE, MEDICAID ==
[~2022-02-06] VITALS: Ht 147.3 cm; Wt 68.0 kg
[~2022-02-06 15:42] MED LIST changes: +AMLO5TAB88 PO; +ATEN50TA MT; -ATEN50TA PO; +DULO30CA2 PO; +ICOS1CAP PO; +LIDO700A30 TOP; -METF-416 PO; +METF-874 MT; +METO-411 MT; +OMEP40CA20 MT; +ONDA4TAB5 MT; +SEMA7TAB PO; +VALS160T28 MT; -VALS160T28 PO
[2022-02-06] MEDS ORDERED: MORPHINE SULFATE 2 MG/ML CPJ (NOT FOR IM USE) IV ONE (16:15)
[2022-02-06 16:41] LABS: BASOPHILS % 0.8 % (0.0-2.0); EOSINOPHILS % 2.5 % (0.0-5.0); HEMATOCRIT. 35.3 % (36.0-48.0); HEMOGLOBIN. 11.5 g/dL (12.0-16.0); LYMPHOCYTES % 25.2 % (20.0-50.0); MEAN CORPUSCULAR HEMOGLOBIN 24.8 pg (28.0-32.0); MEAN CORPUSCULAR VOLUME 76.3 fL (81.0-99.0); MEAN PLATELET VOLUME 6.5 fl (7.4-10.4); MONOCYTES % 9.6 % (2.0-8.0); NEUTROPHILS % 61.9 % (40.0-76.0); PLATELET 413 x1000/uL (130-400); RED BLOOD CELL COUNT 4.63 mill/uL (4.2-5.4); RED CELL DISTRIBUTION WIDTH 20.5 % (11.6-14.6)
[2022-02-06 16:47] LABS: CHLORIDE 105 mEq/L (98-107)
[2022-02-06 20:29] LABS: CLARITY URINE CLEAR (CLEAR); COLOR URINE YELLOW (YELLOW); KETONES URINE NEGATIVE (NEGATIVE); LEUKOCYTE ESTERASE URINE NEGATIVE (NEGATIVE); NITRITE URINE NEGATIVE (NEGATIVE); OCCULT BLOOD URINE NEGATIVE (NEGATIVE); PH URINE 5.5 (4.5-8.0); PROTEIN URINE NEGATIVE (NEGATIVE); SPECIFIC GRAVITY URINE 1.016 (1.005-1.030); UROBILINOGEN URINE 0.2 E.U./dL (0.2-1.0)
[2022-02-06] MEDS ORDERED: KETOROLAC 15MG/ML VIAL IV ONE (21:00)
[2022-02-06] MEDS ORDERED: LIDO700A30 TP (21:21)
[2022-02-06] MEDS ORDERED: CYCL5TAB MT (21:21)
[2022-02-06 22:00] VITALS: BP 168/72
== END 2022-02-06 22:20 | disposition home or self-care (01) ==
LOC: ER 15:42
DX: M54.50 Low back pain, unspecified (principal); G89.29 Other chronic pain; R07.89 Other chest pain; R51.9 Headache, unspecified; D64.9 Anemia, unspecified; E11.9 Type 2 diabetes mellitus without complications; I10 Essential (primary) hypertension; M19.90 Unspecified osteoarthritis, unspecified site; Z88.8 Allergy status to other drugs, medicaments and biological substances; Z79.84 Long term (current) use of oral hypoglycemic drugs
CPT/HCPCS: 36415; 70450; 71045; 72125; 72128; 72131; 80053; 81003; 83880; 84484; 85025; 96374; 96375; 99285; J1885; J2270

== ENCOUNTER 2022-04-26 01:21 | Emergency (ER) | payer MEDICARE, MEDICAID ==
[~2022-04-26] VITALS: Ht 137.2 cm; Wt 75.0 kg
[~2022-04-26 01:21] MED LIST changes: +CYCL5TAB MT; +LIDO700A30 TP; -SEMA7TAB PO; +SEMA7TAB2 PO
[2022-04-26] MEDS ORDERED: IBUPROFEN 600MG TABLET PO ONE (02:45)
[2022-04-26] MEDS ORDERED: ACETAMINOPHEN 325MG TABLET PO ONE (02:45)
[2022-04-26 05:00] VITALS: BP 150/57
[2022-04-26] MEDS ORDERED: DIAZEPAM 5 MG TABLET PO ONE (06:00)
[2022-04-26] MEDS ORDERED: METH-773 MT (06:23)
== END 2022-04-26 07:22 | disposition home or self-care (01) ==
LOC: ER 01:21
DX: G89.29 Other chronic pain (principal); M54.50 Low back pain, unspecified; I10 Essential (primary) hypertension; E11.9 Type 2 diabetes mellitus without complications; Z88.5 Allergy status to narcotic agent; Z88.6 Allergy status to analgesic agent; Z79.899 Other long term (current) drug therapy
CPT/HCPCS: 72110; 72170; 99284

== ENCOUNTER 2022-05-10 06:01 | Emergency (ER) | payer MEDICARE, MEDICAID ==
[~2022-05-10] VITALS: Ht 137.2 cm; Wt 77.0 kg
[~2022-05-10 06:01] MED LIST changes: +METH-773 MT
[2022-05-10] MEDS: KETOROLAC 30MG/ML VIAL IM ONE (08:10)
[2022-05-10] MEDS: CYCLOBENZAPRINE 10MG TABLET PO ONE (08:10)
[2022-05-10] MEDS: PREDNISONE 20MG TABLET PO ONE (08:10)
[2022-05-10 09:02] VITALS: BP 156/95
[2022-05-10] MEDS: MORPHINE SULFATE 4 MG/ML CPJ (NOT FOR IM USE) IV ONE (09:02)
[2022-05-10] MEDS: ONDANSETRON HCL 4MG/2ML INJ IV ONE (09:02)
[2022-05-10] MEDS ORDERED: CYCL5TAB MT (09:21)
[2022-05-10] MEDS ORDERED: MED4 MT (09:21)
== END 2022-05-10 10:19 | disposition home or self-care (01) ==
LOC: ER 06:01
DX: M54.32 Sciatica, left side (principal); E11.9 Type 2 diabetes mellitus without complications; I10 Essential (primary) hypertension; Z88.5 Allergy status to narcotic agent; Z88.6 Allergy status to analgesic agent; Z79.899 Other long term (current) drug therapy; Z98.890 Other specified postprocedural states
CPT/HCPCS: 96372; 96374; 96375; 99284; J1885; J2270; J2405; J7512

== ENCOUNTER 2022-08-16 09:37 | Emergency (ER) | payer MEDICARE, MEDICAID ==
[~2022-08-16] VITALS: Ht 160 cm; Wt 73.0 kg
[~2022-08-16 09:37] MED LIST changes: +MED4 MT
[2022-08-16 11:54] VITALS: BP 134/76
[2022-08-16] MEDS ORDERED: CYCLOBENZAPRINE 10MG TABLET PO NR (12:15)
[2022-08-16] MEDS ORDERED: ACETAMINOPHEN 325MG TABLET PO NR (12:15)
== END 2022-08-16 15:09 | disposition home or self-care (01) ==
LOC: ER 09:37
DX: M54.9 Dorsalgia, unspecified (principal); W10.9XXA Fall (on) (from) unspecified stairs and steps, initial encounter; I10 Essential (primary) hypertension; E11.9 Type 2 diabetes mellitus without complications; Z88.5 Allergy status to narcotic agent; Z88.6 Allergy status to analgesic agent; Y93.89 Activity, other specified; Y92.89 Other specified places as the place of occurrence of the external cause; Y99.8 Other external cause status
CPT/HCPCS: 71045; 72100; 72170; 99284

== ENCOUNTER 2022-12-23 09:40 | Emergency (ER) | payer MEDICARE, MEDICAID ==
[~2022-12-23] VITALS: Ht 165.1 cm; Wt 77.0 kg
[2022-12-23 09:44] VITALS: BP 103/70
[2022-12-23] MEDS ORDERED: CYCLOBENZAPRINE 10MG TABLET PO ONE (11:45)
[2022-12-23] MEDS ORDERED: KETOROLAC 30MG/ML VIAL IM ONE (11:45)
== END 2022-12-23 15:44 | disposition left against medical advice (07) ==
LOC: ER 10:02
DX: M25.512 Pain in left shoulder (principal); M54.12 Radiculopathy, cervical region
CPT/HCPCS: 99283

== ENCOUNTER 2023-08-24 11:50 | Emergency (ER) | payer MEDICARE, MEDICAID ==
[~2023-08-24] VITALS: Ht 152.4 cm; Wt 73.0 kg
[2023-08-24 11:52] VITALS: O2SAT 97
[2023-08-24] MEDS ORDERED: HYDROCODONE/ACETAMINOPHEN 5/325MG TABLET PO STA (14:19)
[2023-08-24] MEDS ORDERED: KETOROLAC 30MG/ML VIAL IM STA (14:45)
[2023-08-24] MEDS ORDERED: ACETAMINOPHEN 325MG TABLET PO STA (14:45)
[2023-08-24 15:11] VITALS: BP 137/76; PULSE 98; RESP 18; TEMP 98.6
[2023-08-24] MEDS ORDERED: GABAPENTIN 300MG CAPSULE PO ONE (17:00)
[2023-08-24] MEDS ORDERED: MORPHINE SULFATE 4 MG/ML CPJ (NOT FOR IM USE) IV STA (18:32)
== END 2023-08-24 19:07 | disposition home or self-care (01) ==
LOC: ER 11:50
DX: G89.29 Other chronic pain (principal); M54.40 Lumbago with sciatica, unspecified side; M19.90 Unspecified osteoarthritis, unspecified site; E11.9 Type 2 diabetes mellitus without complications; K21.9 Gastro-esophageal reflux disease without esophagitis; I10 Essential (primary) hypertension; Z98.890 Other specified postprocedural states
CPT/HCPCS: 99285; 93970; 71045; 72100; 96372; J1885

== ENCOUNTER 2024-05-14 11:53 | Emergency (ER) | payer MEDICARE, MEDICAID ==
[~2024-05-14] VITALS: Ht 152.4 cm; Wt 68.0 kg
[2024-05-14 12:01] VITALS: O2SAT 98
[2024-05-14] MEDS: SODIUM CHLORIDE 0.9% 1,000 ML IV ONE (12:59)
[2024-05-14] MEDS: MORPHINE SULFATE 4 MG/ML INJ (FOR IV/IM USE) IV STA (13:00)
[2024-05-14 13:02] LABS: HEMATOCRIT. 33.7 % (36.0-48.0); HEMOGLOBIN. 11.1 g/dL (12.0-16.0); LYMPHOCYTES % 19.1 % (20.0-50.0); MEAN CORPUSCULAR HEMOGLOBIN 27.8 pg (28.0-32.0); MEAN CORPUSCULAR VOLUME 84.3 fL (81.0-99.0); MEAN PLATELET VOLUME 6.1 fl (7.4-10.4); MONOCYTES % 6.8 % (2.0-8.0); NEUTROPHILS % 70.1 % (40.0-76.0); PLATELET 451 x1000/uL (130-400); RED CELL DISTRIBUTION WIDTH 15.6 % (11.6-14.6); WHITE BLOOD COUNT 12.1 x1000/uL (4.5-11.0)
[2024-05-14 13:07] LABS: PROTHROMBIN TIME 11.4 sec (9.6-11.0)
[2024-05-14 13:12] LABS: CHLORIDE 106 mEq/L (98-107); POTASSIUM 3.9 mEq/L (3.5-5.1); SODIUM 137 mEq/L (136-145)
[2024-05-14 13:13] LABS: CARBON DIOXIDE 24 mEq/L (21-32)
[2024-05-14 13:14] LABS: CALCIUM 9.8 mg/dL (8.7-10.4)
[2024-05-14 13:18] LABS: CREATININE 0.9 mg/dL (0.6-1.0); GLUCOSE 103 mg/dL (70-105)
[2024-05-14 13:19] LABS: UREA NITROGEN BLOOD 31 mg/dL (9-23)
[2024-05-14 13:51] LABS: CLARITY URINE CLEAR (CLEAR); COLOR URINE YELLOW (YELLOW); GLUCOSE URINE NEGATIVE (NEGATIVE); KETONES URINE NEGATIVE (NEGATIVE); LEUKOCYTE ESTERASE URINE NEGATIVE (NEGATIVE); NITRITE URINE NEGATIVE (NEGATIVE); OCCULT BLOOD URINE TRACE (NEGATIVE); PROTEIN URINE NEGATIVE (NEGATIVE); SPECIFIC GRAVITY URINE 1.012 (1.005-1.030); UROBILINOGEN URINE 0.2 E.U./dL (0.2-1.0)
[2024-05-14 14:14] LABS: BACTERIA URINE 1+; RBC URINE 0-2 /hpf (0-2); SQUAMOUS EPITHELIAL CELL URINE 2+ /lpf (RARE/1+); YEAST URINE NONE SEEN
[2024-05-14] MEDS ORDERED: KETOROLAC 30MG/ML VIAL IV ONE (14:45)
[2024-05-14] MEDS: CEPHALEXIN 250MG CAPSULE PO ONE (15:02)
[2024-05-14] MEDS: KETOROLAC 15MG/ML VIAL IV SCH (15:03)
[2024-05-14] MEDS ORDERED: CEPH500C2 MT (17:55)
[2024-05-14] MEDS ORDERED: DOCU-155 MT (17:55)
[2024-05-14 18:12] VITALS: BP 142/76; PULSE 62; RESP 15; TEMP 98
== END 2024-05-14 18:16 | disposition home or self-care (01) ==
LOC: ER 11:53
DX: K57.30 Diverticulosis of large intestine without perforation or abscess without bleeding (principal); E11.9 Type 2 diabetes mellitus without complications; K21.9 Gastro-esophageal reflux disease without esophagitis; I10 Essential (primary) hypertension; Z98.890 Other specified postprocedural states; Z79.899 Other long term (current) drug therapy
CPT/HCPCS: 99285; 74176; 96374; 96361; 96375; 80048; 81003; 83605; 83690; 85025; 85610; 86850; 86900; 86901; 36415; J1885; J2270; J7030

== ENCOUNTER 2024-06-02 17:29 | Inpatient (IN) | payer MEDICARE, MEDICAID ==
[~2024-06-02] VITALS: Ht 137.2 cm; Wt 57.0 kg
[~2024-06-02 17:29] MED LIST changes: +CEPH500C2 MT; +DOCU-155 MT; -MED4 MT; +METH4TAB95 MT
[2024-06-02] MEDS ORDERED: CEFEPIME 2GM IN DEXT 5% 100ML IV ONE (17:45)
[2024-06-02] MEDS ORDERED: VANCOMYCIN 1G PREMIX 200 ML IV SCH (17:45)
[2024-06-02] MEDS ORDERED: ACETAMINOPHEN 325MG TABLET PO ONE (18:00)
[2024-06-02] MEDS ORDERED: CEFEPIME 2GM/100ML 100 ML IV NR (18:30)
[2024-06-02 18:35] LABS: CHLORIDE 108 mEq/L (98-107); POTASSIUM 3.9 mEq/L (3.5-5.1); SODIUM 138 mEq/L (136-145)
[2024-06-02 18:36] LABS: CARBON DIOXIDE 22 mEq/L (21-32)
[2024-06-02 18:41] LABS: CREATININE 0.6 mg/dL (0.6-1.0); GLUCOSE 166 mg/dL (70-105); UREA NITROGEN BLOOD 23 mg/dL (9-23)
[2024-06-02 18:42] LABS: BASOPHILS % 1.3 % (0.0-2.0); EOSINOPHILS % 4.4 % (0.0-5.0); HEMATOCRIT. 32.6 % (36.0-48.0); HEMOGLOBIN. 10.9 g/dL (12.0-16.0); LYMPHOCYTES % 28.2 % (20.0-50.0); MEAN CORPUSCULAR HEMOGLOBIN 28.6 pg (28.0-32.0); MEAN CORPUSCULAR HGB CONC 33.4 g/dL (31.0-37.0); MEAN CORPUSCULAR VOLUME 85.7 fL (81.0-99.0); MEAN PLATELET VOLUME 6.5 fl (7.4-10.4); MONOCYTES % 5.1 % (2.0-8.0); PLATELET 459 x1000/uL (130-400); RED CELL DISTRIBUTION WIDTH 16.9 % (11.6-14.6); WHITE BLOOD COUNT 9.3 x1000/uL (4.5-11.0)
[2024-06-02 18:43] LABS: ALANINE AMINOTRANSFERASE 13 IU/L (10-49); ALBUMIN 4.5 g/dL (3.2-4.8); ASPARTATE AMINOTRANSFERASE 25 IU/L (<34); BILIRUBIN TOTAL 0.3 mg/dL (0.1-1.0)
[2024-06-02] MEDS: VANCOMYCIN 1G PREMIX 200 ML IV SCH (18:45)
[2024-06-02 19:11] LABS: ERYTHROCYTE SEDIMENTATION RATE 68 mm/hr (0-30)
[2024-06-02] MEDS: MORPHINE SULFATE 4 MG/ML INJ (FOR IV/IM USE) IV ONE (19:57)
[2024-06-02] MEDS: ACETAMINOPHEN 325MG TABLET PO NR (20:07)
[2024-06-02 22:25] VITALS: BP 159/64; PULSE 63; RESP 18; TEMP 36.3068
[2024-06-02 22:30] VITALS: BP 159/64; PULSE 63; RESP 20; TEMP 36.28068; O2SAT 99
[2024-06-02] MEDS ORDERED: GUAIFENESIN 200MG/10ML SUGAR FREE UDC PO PRN (23:15)
[2024-06-02] MEDS ORDERED: DOCUSATE SODIUM 100MG CAPSULE PO PRN (23:15)
[2024-06-02] MEDS ORDERED: NA PHOS,M-B/NA PHOS,DI-BA ENEMA 118ML PR PRN (23:15)
[2024-06-02] MEDS ORDERED: CLONIDINE 0.1MG TABLET PO PRN (23:15)
[2024-06-02] MEDS ORDERED: DEXTROSE 50% WATER 50ML SYRINGE IV PRN (23:15)
[2024-06-02] MEDS ORDERED: ACETAMINOPHEN 325MG TABLET PO PRN (23:15)
[2024-06-02] MEDS ORDERED: ONDANSETRON HCL 4MG/2ML INJ IV PRN (23:15)
[2024-06-02] MEDS ORDERED: IPRATROPIUM/ALBUTEROL 0.5-3(2.5)MG/3ML NEB HHN PRN (23:15)
[2024-06-02] MEDS: MORPHINE SULFATE 2 MG/ML INJ (NOT FOR IM USE) IV PRN (23:51)
[2024-06-02] MEDS: QUETIAPINE FUMARATE 25MG TABLET PO SCH (23:51)
[2024-06-03] VITALS: BP 125/68; PULSE 62; RESP 18; TEMP 36.28068; O2SAT 100
[2024-06-03 02:07] LABS: CREATINE KINASE 58 IU/L (34-145)
[2024-06-03] MEDS ORDERED: QUET25TA36 PO (02:17)
[2024-06-03] MEDS ORDERED: HYDR-2988 PO (02:17)
[2024-06-03] MEDS ORDERED: INSU100I24 SQ (02:26)
[2024-06-03] MEDS ORDERED: HYDR-459 PO (02:26)
[2024-06-03] MEDS ORDERED: AMLO1TAB98 MT (02:26)
[2024-06-03 03:59] VITALS: BP 112/65; PULSE 73; RESP 18; TEMP 36.22512; O2SAT 97
[2024-06-03] MEDS: BLOOD SUGAR DIAGNOSTIC STRIP TEST SCH (05:20)
[2024-06-03 06:37] LABS: BASOPHILS % 0.9 % (0.0-2.0); EOSINOPHILS % 5.2 % (0.0-5.0); HEMATOCRIT. 31.2 % (36.0-48.0); HEMOGLOBIN. 10.4 g/dL (12.0-16.0); LYMPHOCYTES % 30.6 % (20.0-50.0); MEAN CORPUSCULAR HEMOGLOBIN 28.4 pg (28.0-32.0); MEAN CORPUSCULAR HGB CONC 33.3 g/dL (31.0-37.0); MEAN CORPUSCULAR VOLUME 85.5 fL (81.0-99.0); MEAN PLATELET VOLUME 6.4 fl (7.4-10.4); NEUTROPHILS % 54.3 % (40.0-76.0); PLATELET 382 x1000/uL (130-400); RED BLOOD CELL COUNT 3.65 mill/uL (4.2-5.4); RED CELL DISTRIBUTION WIDTH 16.9 % (11.6-14.6); WHITE BLOOD COUNT 7.2 x1000/uL (4.5-11.0)
[2024-06-03 06:51] LABS: CARBON DIOXIDE 21 mEq/L (21-32); CHLORIDE 109 mEq/L (98-107); POTASSIUM 3.7 mEq/L (3.5-5.1); SODIUM 139 mEq/L (136-145)
[2024-06-03 06:52] LABS: CALCIUM 9.7 mg/dL (8.7-10.4)
[2024-06-03 06:55] LABS: CREATININE 0.6 mg/dL (0.6-1.0)
[2024-06-03 06:56] LABS: GLUCOSE 108 mg/dL (70-105)
[2024-06-03 06:57] LABS: UREA NITROGEN BLOOD 20 mg/dL (9-23)
[2024-06-03 06:58] LABS: T4 FREE 1.22 ng/dL (0.89-1.76); THYROID STIMULATING HORMONE 6.49 uIU/mL (0.55-4.78)
[2024-06-03 07:15] LABS: CLARITY URINE CLEAR (CLEAR); COLOR URINE YELLOW (YELLOW); GLUCOSE URINE NEGATIVE (NEGATIVE); KETONES URINE NEGATIVE (NEGATIVE); LEUKOCYTE ESTERASE URINE NEGATIVE (NEGATIVE); NITRITE URINE NEGATIVE (NEGATIVE); OCCULT BLOOD URINE NEGATIVE (NEGATIVE); PROTEIN URINE NEGATIVE (NEGATIVE); SPECIFIC GRAVITY URINE 1.017 (1.005-1.030); UROBILINOGEN URINE 0.2 E.U./dL (0.2-1.0)
[2024-06-03 07:31] LABS: TROPONIN I HIGH SENSITIVITY < 4 ng/L (3.0-34)
[2024-06-03 07:51] VITALS: BP 156/60; PULSE 74; RESP 19; TEMP 36.61404; O2SAT 98
[2024-06-03] MEDS: INSULIN LISPRO 100 UNITS/ML SUBCUT SCH (08:10)
[2024-06-03] MEDS: AMLODIPINE 10MG TABLET PO SCH (08:39)
[2024-06-03] MEDS: HYDROCODONE/ACETAMINOPHEN 5/325MG TABLET PO PRN (08:46)
[2024-06-03] MEDS: DIPHENHYDRAMINE 50MG/ML VIAL IV PRN (08:46)
[2024-06-03] MEDS: MAGNESIUM/ALUMINUM HYDROXIDE/SIMETHICONE 30ML UDC PO PRN (11:41)
[2024-06-03] MEDS: KETOROLAC 15MG/ML VIAL IV PRN (12:01)
[2024-06-03 12:07] VITALS: BP 119/65; PULSE 71; RESP 19; TEMP 36.61404; O2SAT 97
[2024-06-03 16:30] VITALS: BP 102/60; PULSE 71; RESP 18; TEMP 36.22512; O2SAT 97
[2024-06-03] MEDS ORDERED: CEFEPIME 2GM IN DEXT 5% 100ML IV SCH (18:00)
[2024-06-03] MEDS: DIPHENHYDRAMINE 25MG CAPSULE PO NR (18:33)
[2024-06-03] MEDS: LACTOBACILLUS GG CAPSULE PO SCH (18:33)
[2024-06-03 19:28] LABS: TROPONIN I HIGH SENSITIVITY < 4 ng/L (3.0-34)
[2024-06-03 20:00] VITALS: BP 116/62; PULSE 72; RESP 18; TEMP 35.72508; O2SAT 98
[2024-06-03] MEDS: HYDRALAZINE HCL 10MG TABLET PO SCH (20:46)
[2024-06-03] MEDS: FAMOTIDINE 20MG TABLET PO SCH (20:46)
[2024-06-03] MEDS: CEFEPIME 2GM/100ML 100 ML IV SCH (20:46)
[2024-06-03] MEDS: ATORVASTATIN CALCIUM 20MG TABLET PO SCH (20:46)
[2024-06-03] MEDS: DEXT 5%/0.9% NACL 1,000 ML IV SCH (20:47)
[2024-06-03] MEDS: INSULIN GLARGINE 100 UNITS/ML SUBCUT SCH (21:08)
[2024-06-04] VITALS (29 sets, daily range): BP systolic 95–140; BP diastolic 45–98; PULSE 64–87; RESP 11–23; TEMP 36.3918–36.72516; O2SAT 96–100
[2024-06-04 07:33] LABS: EOSINOPHILS % 5.3 % (0.0-5.0); HEMATOCRIT. 34.1 % (36.0-48.0); HEMOGLOBIN. 11.1 g/dL (12.0-16.0); LYMPHOCYTES % 22.5 % (20.0-50.0); MEAN CORPUSCULAR HEMOGLOBIN 28.1 pg (28.0-32.0); MEAN CORPUSCULAR HGB CONC 32.5 g/dL (31.0-37.0); MEAN CORPUSCULAR VOLUME 86.4 fL (81.0-99.0); MEAN PLATELET VOLUME 6.3 fl (7.4-10.4); MONOCYTES % 7.3 % (2.0-8.0); NEUTROPHILS % 63.9 % (40.0-76.0); PLATELET 410 x1000/uL (130-400); RED BLOOD CELL COUNT 3.95 mill/uL (4.2-5.4); RED CELL DISTRIBUTION WIDTH 17.2 % (11.6-14.6); WHITE BLOOD COUNT 7.5 x1000/uL (4.5-11.0)
[2024-06-04 07:39] LABS: CALCIUM 9.8 mg/dL (8.7-10.4); CARBON DIOXIDE 23 mEq/L (21-32); CHLORIDE 108 mEq/L (98-107); SODIUM 138 mEq/L (136-145)
[2024-06-04 07:44] LABS: IRON 81 ug/dL (50-170)
[2024-06-04 07:45] LABS: CREATININE 0.7 mg/dL (0.6-1.0); GLUCOSE 126 mg/dL (70-105); UREA NITROGEN BLOOD 26 mg/dL (9-23)
[2024-06-04 07:47] LABS: TOTAL IRON BINDING CAPACITY 320 ug/dl (250-425)
[2024-06-04 07:53] LABS: FERRITIN 230 ng/mL (10-291)
[2024-06-04 07:54] LABS: VITAMIN B12 SERUM 500 pg/mL (211-911)
[2024-06-04] MEDS ORDERED: LIDOCAINE HCL/EPINEPHRINE 1%-EPI 1:100,000 20ML VIAL ONE (07:55)
[2024-06-04] MEDS ORDERED: GENTAMICIN SULF 40MG/ML 2ML VIAL ONE (07:55)
[2024-06-04] MEDS ORDERED: THROMBIN (BOVINE) 5000 UNITS/VIAL TOP ONE (07:55)
[2024-06-04] MEDS ORDERED: PHENYLEPHRINE 50MG/250ML PMX 250 ML IV ONE (13:22)
[2024-06-04] MEDS ORDERED: NICARDIPINE 40MG/200ML PREMIX 200 ML IV ONE (13:41)
[2024-06-04] MEDS ORDERED: ROCURONIUM BROMIDE 10MG/ML VIAL 5ML IV ONE (13:44)
[2024-06-04] MEDS ORDERED: HYDROMORPHONE HCL/PF 1MG/ML INJ ONE (13:44)
[2024-06-04] MEDS ORDERED: FENTANYL CITRATE/PF 50MCG/ML 5ML VIAL ONE (13:44)
[2024-06-04] MEDS ORDERED: PROPOFOL 200MG/20ML VIAL IV ONE (13:44)
[2024-06-04] MEDS ORDERED: SUGAMMADEX SODIUM 200MG/2ML VIAL IV ONE (15:01)
[2024-06-04] MEDS ORDERED: ATROPINE SULFATE 1MG/10ML SYR IV PRN (15:30)
[2024-06-04] MEDS ORDERED: HYDRALAZINE 20MG/ML VIAL IV PRN ×2 (15:30)
[2024-06-04] MEDS ORDERED: MORPHINE SULFATE 2 MG/ML INJ (NOT FOR IM USE) IV PRN (15:30)
[2024-06-04] MEDS ORDERED: LABETALOL 5MG/ML 4ML INJ IV PRN (15:30)
[2024-06-04] MEDS ORDERED: ONDANSETRON HCL 4MG/2ML INJ IV PRN (15:30)
[2024-06-04] MEDS ORDERED: NICARDIPINE 100 MG in SODIUM CHLORIDE 0.9% 60 ML IV PRN (16:00)
[2024-06-04] MEDS: LACTATED RINGERS 1,000 ML IV SCH ×2 (17:07→21:13)
[2024-06-04] MEDS: MORPHINE SULFATE 4 MG/ML INJ (FOR IV/IM USE) IV PRN (20:33)
[2024-06-04] MEDS: VANCOMYCIN 1GM/200ML PMX (BAXTER) IV NR (21:14)
[2024-06-04] MEDS ORDERED: CEFAZOLIN SODIUM 1000MG/VIAL IV SCH (22:00)
[2024-06-04] MEDS: CEFAZOLIN 1000MG PREMIX 50ML IV SCH (23:39)
[2024-06-05] VITALS (54 sets, daily range): BP systolic 99–144; BP diastolic 51–79; PULSE 56–82; RESP 9–20; TEMP 36.44736–36.72516; O2SAT 96–100
[2024-06-05] MEDS: DIPHENHYDRAMINE HCL/ZINC ACET 28 GM CREAM TOP PRN (13:04)
[2024-06-05] MEDS: PHENYLEPH/PRAMOXIN/GLYCR/PET RECTAL CREAM 26GM PR SCH (13:04)
[2024-06-05] MEDS ORDERED: BISACODYL 5MG TABLET PO PRN (13:30)
[2024-06-05 13:47] LABS: CHLORIDE 106 mEq/L (98-107); POTASSIUM 3.9 mEq/L (3.5-5.1); SODIUM 136 mEq/L (136-145)
[2024-06-05 13:48] LABS: CALCIUM 9.7 mg/dL (8.7-10.4); CARBON DIOXIDE 20 mEq/L (21-32)
[2024-06-05 13:53] LABS: CREATININE 0.6 mg/dL (0.6-1.0); GLUCOSE 206 mg/dL (70-105); UREA NITROGEN BLOOD 16 mg/dL (9-23)
[2024-06-05] MEDS ORDERED: NALOXONE HCL 0.4MG/ML VIAL IV PRN (14:15)
[2024-06-05] MEDS: MELATONIN 3MG TABLET PO SCH ×2 (14:28→21:04)
[2024-06-05] MEDS: DOCUSATE SODIUM 250MG CAPSULE PO SCH (14:28)
[2024-06-05] MEDS: VANCOMYCIN 750MG/150ML (BAXTER) IV SCH (17:04)
[2024-06-05] MEDS: GADOTERATE MEGLUMINE 5 MMOL/10 ML VIAL IV ONE (23:48)
[2024-06-05] MEDS: HYDROXYZINE 25MG TABLET PO PRN (23:49)
[2024-06-06] VITALS: BP 117/58; PULSE 64; RESP 18; TEMP 36.3918; O2SAT 100
[2024-06-06 04:00] VITALS: BP 136/63; PULSE 67; RESP 16; TEMP 36.16956; O2SAT 97
[2024-06-06 07:36] LABS: BASOPHILS % 0.8 % (0.0-2.0); EOSINOPHILS % 3.1 % (0.0-5.0); HEMATOCRIT. 30.8 % (36.0-48.0); LYMPHOCYTES % 23.8 % (20.0-50.0); MEAN CORPUSCULAR HGB CONC 32.5 g/dL (31.0-37.0); MEAN CORPUSCULAR VOLUME 86.1 fL (81.0-99.0); MEAN PLATELET VOLUME 6.4 fl (7.4-10.4); MONOCYTES % 9.9 % (2.0-8.0); NEUTROPHILS % 62.4 % (40.0-76.0); PLATELET 358 x1000/uL (130-400); RED BLOOD CELL COUNT 3.58 mill/uL (4.2-5.4); RED CELL DISTRIBUTION WIDTH 17.6 % (11.6-14.6); WHITE BLOOD COUNT 9.6 x1000/uL (4.5-11.0)
[2024-06-06 07:43] LABS: CHLORIDE 107 mEq/L (98-107); POTASSIUM 3.7 mEq/L (3.5-5.1); SODIUM 140 mEq/L (136-145)
[2024-06-06 07:44] LABS: CALCIUM 10.1 mg/dL (8.7-10.4); CARBON DIOXIDE 25 mEq/L (21-32)
[2024-06-06 07:49] LABS: CREATININE 0.5 mg/dL (0.6-1.0); GLUCOSE 92 mg/dL (70-105); UREA NITROGEN BLOOD 11 mg/dL (9-23)
[2024-06-06 08:00] VITALS: BP 130/77; PULSE 80; RESP 20; TEMP 36.89184; O2SAT 98
[2024-06-06 12:00] VITALS: BP 129/84; PULSE 79; RESP 20; TEMP 36.72516; O2SAT 98
[2024-06-06 16:00] VITALS: BP 109/56; PULSE 88; RESP 20; TEMP 36.44736; O2SAT 100
[2024-06-06] MEDS: VANCOMYCIN 1G PREMIX 200 ML IV SCH (16:59)
[2024-06-06 20:00] VITALS: BP 110/61; PULSE 87; RESP 19; TEMP 36.3918; O2SAT 100
[2024-06-07] VITALS (7 sets, daily range): BP systolic 95–126; BP diastolic 53–64; PULSE 67–83; RESP 16–20; TEMP 35.78064–37.16964; O2SAT 96–100
[2024-06-07] MEDS: LORATADINE 10MG TABLET PO PRN (15:57)
[2024-06-07] MEDS: FAMOTIDINE 20MG TABLET PO SCH (21:09)
[2024-06-08] VITALS: BP 94/41; PULSE 74; RESP 18; TEMP 36.22512; O2SAT 98
[2024-06-08 04:00] VITALS: BP 140/71; PULSE 73; RESP 18; TEMP 36.16956; O2SAT 100
[2024-06-08 06:31] LABS: CARBON DIOXIDE 24 mEq/L (21-32); CHLORIDE 106 mEq/L (98-107); POTASSIUM 3.6 mEq/L (3.5-5.1); SODIUM 137 mEq/L (136-145)
[2024-06-08 06:33] LABS: CALCIUM 9.5 mg/dL (8.7-10.4)
[2024-06-08 06:37] LABS: CREATININE 0.6 mg/dL (0.6-1.0); GLUCOSE 119 mg/dL (70-105); UREA NITROGEN BLOOD 14 mg/dL (9-23)
[2024-06-08 08:15] LABS: BASOPHILS % 0.8 % (0.0-2.0); EOSINOPHILS % 5.1 % (0.0-5.0); HEMATOCRIT. 29.9 % (36.0-48.0); HEMOGLOBIN. 9.8 g/dL (12.0-16.0); LYMPHOCYTES % 26.3 % (20.0-50.0); MEAN CORPUSCULAR HEMOGLOBIN 28.4 pg (28.0-32.0); MEAN CORPUSCULAR HGB CONC 32.7 g/dL (31.0-37.0); MEAN CORPUSCULAR VOLUME 87.1 fL (81.0-99.0); MEAN PLATELET VOLUME 6.6 fl (7.4-10.4); MONOCYTES % 9.3 % (2.0-8.0); NEUTROPHILS % 58.5 % (40.0-76.0); PLATELET 333 x1000/uL (130-400); RED BLOOD CELL COUNT 3.43 mill/uL (4.2-5.4); RED CELL DISTRIBUTION WIDTH 17.4 % (11.6-14.6); WHITE BLOOD COUNT 8.8 x1000/uL (4.5-11.0)
[2024-06-08 08:25] VITALS: BP 125/70; PULSE 68; RESP 19; TEMP 36.61404; O2SAT 99
[2024-06-08 12:05] VITALS: BP 118/62; PULSE 81; RESP 19; TEMP 36.6696; O2SAT 96
[2024-06-08 15:56] VITALS: BP 102/67; RESP 19; TEMP 36.61404; O2SAT 98
[2024-06-08 20:00] VITALS: BP 120/64; PULSE 79; RESP 18; TEMP 37.11408; O2SAT 98
[2024-06-09] VITALS: BP 112/55; PULSE 78; RESP 20; TEMP 37.05852; O2SAT 97
[2024-06-09 04:00] VITALS: BP 100/51; PULSE 78; RESP 20; TEMP 37.16964; O2SAT 98
[2024-06-09 08:00] VITALS: BP 119/62; PULSE 68; RESP 20; TEMP 36.16956; O2SAT 99
[2024-06-09] MEDS ORDERED: LIDOCAINE HCL 1% 10 MG/ML 10ML VIAL ONE (11:11)
[2024-06-09 12:00] VITALS: BP 107/57; PULSE 73; RESP 18; TEMP 36.114; O2SAT 100
[2024-06-09 16:00] VITALS: BP 117/63; PULSE 79; RESP 20; TEMP 37.00296; O2SAT 99
[2024-06-09] MEDS: ACETAMINOPHEN 325MG TABLET PO PRN (20:24)
[2024-06-09 20:54] VITALS: BP 120/70; PULSE 82; RESP 19; TEMP 36.6696
[2024-06-10] VITALS: BP 104/61; PULSE 68; RESP 19; TEMP 35.89176; O2SAT 97
[2024-06-10 04:00] VITALS: BP 109/59; PULSE 59; RESP 20; TEMP 36.16956; O2SAT 98
[2024-06-10 08:00] VITALS: BP 118/65; PULSE 69; RESP 18; TEMP 36.114; O2SAT 100
[2024-06-10] MEDS ORDERED: IBUPROFEN 200MG TABLET PO PRN (09:15)
[2024-06-10] MEDS: PANTOPRAZOLE SODIUM 40 MG/VIAL IV SCH (09:36)
[2024-06-10 12:00] VITALS: BP 120/71; PULSE 74; RESP 20; TEMP 36.16956; O2SAT 99
[2024-06-10] MEDS ORDERED: QUET25TA PO (12:11)
[2024-06-10] MEDS: CEFTRIAXONE 2GM/50ML 50 ML IV SCH (13:08)
[2024-06-10 15:03] VITALS: BP 120/71; PULSE 74; TEMP 97.1; O2SAT 99
== END 2024-06-10 17:05 | disposition home health service (06) | DRG 907 ==
LOC: ER 17:29 → EDBEDREQ 19:21 → EDBEDREQTM 19:21 → EDBEDREQ 19:51 → 7WST 22:26 → MICUNO 06-04 18:11 → 7WST 06-05 23:36
PROVIDERS: ADMIT Internal Medicine; ATTEND Internal Medicine
PROC: 0QB00ZZ Excision of Lumbar Vertebra, Open Approach (ICD-10-PCS; principal; 2024-06-04)
PROC: 0QB10ZZ Excision of Sacrum, Open Approach (ICD-10-PCS; 2024-06-04)
PROC: 009U0ZZ Drainage of Spinal Canal, Open Approach (ICD-10-PCS; 2024-06-07)
PROC: 02HV33Z Insertion of Infusion Device into Superior Vena Cava, Percutaneous Approach (ICD-10-PCS; 2024-06-09)
PROC: B548ZZA Ultrasonography of Superior Vena Cava, Guidance (ICD-10-PCS; 2024-06-09)
DX: T81.31XA Disruption of external operation (surgical) wound, not elsewhere classified, initial encounter (principal); G06.1 Intraspinal abscess and granuloma; G82.20 Paraplegia, unspecified; M46.26 Osteomyelitis of vertebra, lumbar region; I13.0 Hypertensive heart and chronic kidney disease with heart failure and stage 1 through stage 4 chronic kidney disease, or unspecified chronic kidney disease; M00.88 Arthritis due to other bacteria, vertebrae; M00.9 Pyogenic arthritis, unspecified; E11.22 Type 2 diabetes mellitus with diabetic chronic kidney disease; E78.5 Hyperlipidemia, unspecified; K21.9 Gastro-esophageal reflux disease without esophagitis; M48.00 Spinal stenosis, site unspecified; D64.9 Anemia, unspecified; I50.9 Heart failure, unspecified; E11.69 Type 2 diabetes mellitus with other specified complication; K64.8 Other hemorrhoids; E02 Subclinical iodine-deficiency hypothyroidism; B95.1 Streptococcus, group B, as the cause of diseases classified elsewhere; N18.9 Chronic kidney disease, unspecified; K57.30 Diverticulosis of large intestine without perforation or abscess without bleeding; M19.012 Primary osteoarthritis, left shoulder; M47.816 Spondylosis without myelopathy or radiculopathy, lumbar region; Z20.822 Contact with and (suspected) exposure to COVID-19; K59.00 Constipation, unspecified; Y83.8 Other surgical procedures as the cause of abnormal reaction of the patient, or of later complication, without mention of misadventure at the time of the procedure; Z88.5 Allergy status to narcotic agent; Z88.8 Allergy status to other drugs, medicaments and biological substances; Y92.89 Other specified places as the place of occurrence of the external cause; Z86.79 Personal history of other diseases of the circulatory system; Z79.4 Long term (current) use of insulin; Z90.710 Acquired absence of both cervix and uterus
CPT/HCPCS: 36415; 36573; 71045; 72100; 72156; 72157; 72158; 73030; 73521; 76000; 80048; 80053; 80202; 81003; 82550; 82607; 82728; 82746; 82962; 83540; 83550; 83605; 84145; 84439; 84443; 84484; 85025; 85379; 85651; 86850; 86900; 87070; 87075; 87077; 87186; 87426; 88304; 93005; 93970; 97162; 97166; 99285; A9577; C1725; C1769; J0690; J0692; J0696; J1170; J1200; J1580; J1815; J1885; J2270; J2470; J2704; J3010; J3370; J3490; J7042; J7120; Q0163

== ENCOUNTER 2024-11-27 16:08 | Emergency (ER) | payer MEDICARE, MEDICAID ==
[~2024-11-27] VITALS: Ht 152.4 cm; Wt 55.7 kg
[~2024-11-27 16:08] MED LIST changes: +AMLO1TAB98 MT; -AMLO5TAB88 PO; -ATEN50TA MT; +CEFT2PIG IV; -CEPH500C2 MT; -CYCL5TAB MT; +CYCL5TAB3 MT; +HYDR-2988 PO; +HYDR-459 PO; +INSU100I24 SQ; -LIDO700A30 TOP; -LIDO700A30 TP; +METF-1150 MT; -METF-874 MT; -METH4TAB95 MT; -ONDA4TAB5 MT; +QUET25TA PO; +QUET25TA36 PO
[2024-11-27 16:11] VITALS: O2SAT 98
[2024-11-27] MEDS: ONDANSETRON HCL 4MG/2ML INJ IV STA (17:33)
[2024-11-27 17:43] LABS: CHLORIDE 104 mEq/L (98-107); SODIUM 137 mEq/L (136-145)
[2024-11-27 17:45] LABS: CALCIUM 9.3 mg/dL (8.7-10.4); CARBON DIOXIDE 24 mEq/L (21-32)
[2024-11-27 17:50] LABS: CREATININE 0.6 mg/dL (0.6-1.0); GLUCOSE 159 mg/dL (70-105); UREA NITROGEN BLOOD 14 mg/dL (9-23)
[2024-11-27 17:58] LABS: ETHANOL BLOOD < 10 mg/dL (<10); TROPONIN I HIGH SENSITIVITY < 4 ng/L (3.0-34)
[2024-11-27 18:01] LABS: CLARITY URINE CLEAR (CLEAR); COLOR URINE YELLOW (YELLOW); GLUCOSE URINE NEGATIVE (NEGATIVE); KETONES URINE NEGATIVE (NEGATIVE); LEUKOCYTE ESTERASE URINE NEGATIVE (NEGATIVE); NITRITE URINE NEGATIVE (NEGATIVE); OCCULT BLOOD URINE NEGATIVE (NEGATIVE); PROTEIN URINE NEGATIVE (NEGATIVE); SPECIFIC GRAVITY URINE 1.057 (1.005-1.030)
[2024-11-27 18:10] LABS: *AMPHETAMINES SCREEN URINE NEGATIVE (NEGATIVE)
[2024-11-27 18:11] LABS: *BARBITURATES SCREEN URINE NEGATIVE (NEGATIVE); *BENZODIAZEPINES SCREEN URINE NEGATIVE (NEGATIVE); *COCAINE SCREEN URINE NEGATIVE (NEGATIVE); CANNABINOID URINE SCREEN NEGATIVE (NEGATIVE); ECSTASY MDMA SCREEN URINE NEGATIVE (NEGATIVE); METHADONE URINE SCREEN Pos (NEGATIVE); OPIATES URINE SCREEN NEGATIVE (NEGATIVE); PHENCYCLIDINE URINE SCREEN NEGATIVE (NEGATIVE)
[2024-11-27 19:12] LABS: BASOPHILS % 1.1 % (0.0-2.0); EOSINOPHILS % 5.7 % (0.0-5.0); HEMATOCRIT. 26.3 % (36.0-48.0); HEMOGLOBIN. 8.8 g/dL (12.0-16.0); LYMPHOCYTES % 19.5 % (20.0-50.0); MEAN CORPUSCULAR HEMOGLOBIN 29.6 pg (28.0-32.0); MEAN CORPUSCULAR HGB CONC 33.5 g/dL (31.0-37.0); MEAN CORPUSCULAR VOLUME 88.5 fL (81.0-99.0); MEAN PLATELET VOLUME 6.1 fl (7.4-10.4); MONOCYTES % 8.4 % (2.0-8.0); NEUTROPHILS % 65.3 % (40.0-76.0); PLATELET 383 x1000/uL (130-400); RED BLOOD CELL COUNT 2.97 mill/uL (4.2-5.4); RED CELL DISTRIBUTION WIDTH 19.8 % (11.6-14.6); WHITE BLOOD COUNT 9.7 x1000/uL (4.5-11.0)
[2024-11-27 19:30] LABS: TROPONIN I HIGH SENSITIVITY < 4 ng/L (3.0-34)
[2024-11-27 19:45] LABS: INR 1.1; PROTHROMBIN TIME 11.7 sec (9.6-11.0)
[2024-11-27] MEDS: MORPHINE SULFATE 4 MG/ML INJ (FOR IV/IM USE) IV ONE (20:19)
[2024-11-27 21:16] VITALS: BP 128/65; PULSE 80; RESP 16; TEMP 37.1; O2SAT 98
[2024-11-27] MEDS ORDERED: IOHEXOL-350 100 ML BOTTLE ONE (23:12)
== END 2024-11-27 21:23 | disposition left against medical advice (07) ==
LOC: ER 16:08
DX: I63.9 Cerebral infarction, unspecified (principal); E11.9 Type 2 diabetes mellitus without complications; E78.5 Hyperlipidemia, unspecified; I10 Essential (primary) hypertension; M19.90 Unspecified osteoarthritis, unspecified site; K21.9 Gastro-esophageal reflux disease without esophagitis; Z79.4 Long term (current) use of insulin; Z79.82 Long term (current) use of aspirin; Z79.84 Long term (current) use of oral hypoglycemic drugs; Z79.899 Other long term (current) drug therapy; Z88.6 Allergy status to analgesic agent; Z88.5 Allergy status to narcotic agent
CPT/HCPCS: 80305; 80048; 81003; 80320; 85025; 85610; 84484; 36415; 71045; 70496; 70498; 70450; 93005; 96374; 99291; Q9967; J2270; J2405; G0480